=== PATIENT | female | born 1965 | race Caucasian/White ===

== ENCOUNTER 2016-07-07 16:39 | Inpatient (IN) | payer MEDICARE ==
[~2016-07-07] VITALS: Ht 167.6 cm; Wt 53.2 kg
[~2016-07-07 16:39] MED LIST: ALBU8.5H2 INHALATION; FLUO10CA20 PO; IBUP800T28 PO; KLO1T PO; LEVO125T6 PO; NITR0.4T SL; OLAN5TAB PO
[2016-07-07 16:59] VITALS: BP 125/85; PULSE 77; RESP 14; O2SAT 97
--- NOTE | 2016-07-07 17:21 | ED.REPORT ---
HPI-Psychiatric Illness Date of Service Jul 07, 2016 ED Provider: Ernie Anderson MD Pt is a 51 y.o. female with an extensive mental health hx including PTSD, bipolar disorder, ADHD, depression, anxiety, and hx of ETOH abuse who presents to the ED via EMS s/p a suicide attempt. Pt used an Exacto knife to create lacerations to her arms bilaterally and her neck. Pt refuses to speak upon examination so hx is limited. Nursing Notes Stated Complaint: SUICIDAL ATTEMPT Chief Complaint: Psychiatric Complaint Nursing Notes Reviewed: Yes Allergies: Coded Allergies: Sulfa (Sulfonamide Antibiotics) (Verified Allergy, Unknown, 06/05/15) aspirin (Verified Allergy, Unknown, 06/05/15) Scheduled Albuterol HFA (Proair HFA) 8.5 Gm Hfa.aer.ad 2 PUFFS INHALATION Q4H Clonazepam (Clonazepam) 1 Mg Tablet 1 MG PO BID Fluoxetine (Fluoxetine) 10 Mg Capsule 10 MG PO DAILY Levothyroxine (Levothyroxine) 125 Mcg Tablet 125 MCG PO DAILYAC Olanzapine (Olanzapine) 5 Mg Tablet 5 MG PO BID Scheduled PRN Ibuprofen (Ibuprofen) 800 Mg Tablet 800 MG PO TID PRN PRN For Pain Nitroglycerin SL (Nitrostat) 0.4 Mg Tab.subl 0.4 MG SL Q5MIN PRN PRN For Chest Pain General Time Seen by MD: 17:12 Chief Complaint Suicidal attempt Hx Obtained From: EMS Unable to Obtain Hx: Patient condition, Uncooperative Arrived By: Ambulance Onset Occurred: Just prior to arrival Caused by: Cut self Recent Healthcare: No recent doctor visit, No recent hospitalization Risk-Psychiatric Illness Suicide Risk Stratification Suicide Risk Factors - Adult: : Alcohol use RF Statements: Risk factors reviewed Past Medical History Past Medical History Notes: PCP: Dr. Colmenares Psychiatrist: Dr. Lucero Past Medical History PTSD Bipolar admitted 04/20/2014 to [facility] ([facility] Anxiety ADHD Depression "Major chronic dehydration" Unclear if Seizure hx Reports: COPD Reports: Thyroid disease Past Surgical History Partial hysterectomy Second surgery that resulted in complete hysterectomy Smoking History Current Every Day Smoker Social History Sober for 14 years until she recently started drinking again she claims 1 week ago Alcohol Use: In recovery Drug Use: THC Other Social History: Poor social support, Lives alone, Local resident Occupation lives with landlady, no work or school Ambulatory Status Independent Review of Systems Lacerations, arms bilaterally and neck Unable to Obtain ROS Patient condition, Uncooperative Psychiatric: Reports: Suicidal ideation Complete sys rev & neg: except as marked. Physical Exam Physical Exam Notes: Initial Vital Signs Vital Signs (First) Date Time Temp Pulse Resp B/P Pulse Ox O2 Delivery O2 Flow Rate FiO2 07/07/16 16:59 36.4 77 14 125/85 97 Room Air Initial VS: Reviewed Head / Eyes: Atraumatic, Normocephalic Respiratory: Breath sounds normal, Clear to auscultation, No respiratory distress Cardiovascular: Regular rate & rhythm, Heart sounds normal, Intact distal pulses Skin: Warm, Dry, No cyanosis General/Constitutional: Awake Pt refuses to speak upon examination Neurologic: No motor deficits Abnormal Thinking / Perception: Positive: Suicidal, with plan Trauma - General: Positive: Abrasion Multiple superficial self-inflicted abrasians to left and right aspect of neck. Upper Extremity / MS: Neurologic intact, Vascular intact, No ligamentous injury Trauma / Burn / Environmental: Positive: Laceration Multiple superficial abrasions to right forearm measuring 4-6cm. From anticubital fossa to wrist 13 lacerations, none actively bleeding, dried blood present. At least 10 lacerations to left forearm, 3 extend to subcutaneous tissue and are open and actively bleeding. 6-8cm lacerations over left anticubital fossa lateral aspect of one is slightly open. Interpretation & Diagnostics Lab Results Interpretation Result Diagram: 07/07/16 2350 07/07/16 2350 Test 07/07/16 17:47 07/07/16 23:50 Hold Urine Received (Received) Urine Opiates Screen Negative Urine Methadone Screen Negative Urine Barbiturates Screen Negative Urine Amphetamines Screen Negative Urine Benzodiazepines Screen Negative Urine Cocaine Metabolite Screen Negative Urine Cannabinoids Screen Positive White Blood Count 7.0th/mm3 (3.8-10.1) Red Blood Count 3.68mil/mm3 (3.90-5.20) Hemoglobin 12.1g/dL (12.0-15.6) Hematocrit 35.7% (35.0-46.0) Mean Corpuscular Volume 97.0fL (81-100) Mean Corpuscular Hemoglobin 32.9pg (27.0-35.0) Mean Corpuscular Hemoglobin Concent 33.9% (32.0-37.0) Red Cell Distribution Width 15.1% (12.3-15.4) Platelet Count 192bil/L (150-400) Neutrophils (%) (Auto) 47.6% (40-74) Lymphocytes (%) (Auto) 38.0% (14-46) Monocytes (%) (Auto) 9.3% (4-12) Eosinophils (%) (Auto) 4.4% (0-5) Basophils (%) (Auto) 0.4% (0-3) Sodium Level 137mEq/L (134-144) Potassium Level 4.3mEq/L (3.5-5.2) Chloride Level 100mEq/L (97-108) Carbon Dioxide Level 28mmol/L (18-29) Blood Urea Nitrogen 24mg/dL (6-24) Creatinine 0.72mg/dL (0.57-1.00) Estimat Glomerular Filtration Rate 122mL/min (>59) Glucose Level 97mg/dL (60-99) Calcium Level 8.9mg/dL (8.5-10.1) Total Bilirubin 0.2mg/dL (0.0-1.2) Aspartate Amino Transf (AST/SGOT) 96U/L (0-50) Alanine Aminotransferase (ALT/SGPT) 72U/L (0-32) Alkaline Phosphatase 106U/L (25-150) Total Protein 5.6g/dL (6.4-8.4) Albumin 3.6g/dL (3.4-5.0) Thyroid Stimulating Hormone (TSH) 0.353uIU/mL (0.450-4.500) Hold Otto Top Tube Received (Received) Alcohol, Quantitative < 10mg/dL (0-10) General Lab Results Interp 2: Alcohol level elevated (.020) Procedures Procedure Notes: several shallow lacerations repaired on left forearm by PADMA Al Consent not obtained, emergent repair. Hand hygiene observed, sterile technique. Left forearm cleansed with Shur-Clens and normal saline. Approximately 6 mL's of 1% lidocaine with epi distributed among several lacerations using a 27-gauge needle. All lacerations simple 1 layer closures, repaired using 5-0 Ethilon sutures as follows: 4 cm laceration; 9 running sutures 2 cm laceration; 4 running sutures 2 cm laceration; 4 running sutures 2 cm laceration; 4 running sutures 4 cm laceration; 10 running sutures 4 cm laceration; 11 running sutures 1 cm laceration; one mattress suture Antibiotic ointment applied and gauze dressing applied Re-Eval/Medical Decision Med Decision/Clinical Course In summary, the patient is a 51-year-old female who presents to the emergency department after multiple self-inflicted lacerations to the forearms and presumed suicide attempt. History is extremely limited as the patient refuses to speak with us in the emergency room. Breathalyzer 0.020, urine drug screen unremarkable. The patient's multiple lacerations were copiously irrigated and tetanus status was updated. Lacerations were repaired as documented above. The patient was seen and evaluated by our social media analyst who was unable to provide much additional information from her. Given the severity of her lacerations we are concerned that this may have been a genuine suicide attempt. DM was called to evaluate the patient. She was signed out to the oncoming physician in stable condition. Patient was seen by the CDP. The MHP's evaluation found her to be voluntary and recommendations were for voluntary hospitalization. Laboratory work was drawn. She was considered medically clear based upon laboratory work and she was admitted to the psychiatric floor. Source of Hx: Old records Counseled Regarding: Diagnosis Discharge & Departure Shift Change Sign-Out Patient Care Transferred: Yes (Dr. Smart) Discussed Complaint(s): Yes Laboratory Evaluation: Lab evaluation discussed Impression: Primary Impression: Substance abuse Additional Impressions: Depression Depression Type: unspecified Qualified Code: F32.9 - Major depressive disorder, single episode, unspecified Suicide attempt Multiple lacerations Discharge Condition All VS Reviewed: Yes Condition: Stable Referrals: Gigi Colmenares MD (PCP) Care Transferred to: Dr. Smart Care Transferred at: 00:00 Marlo Attestation Portions of this note were transcribed by Sena Montgomery. I, Dr. Anderson personally performed the history, physical exam and medical decision-making; I reviewed and confirmed the accuracy of the information in the transcribed note. Signed by: Marlo Barboza, 07/07/2016 and 2224. copies to: Gigi Colmenares MD, Beck O MD Jul 07, 2016 17:21 SENA MONTGOMERY Jul 07, 2016 17:35 Brian Conway PA-C Jul 07, 2016 21:07 Alberto Barnard DO Jul 08, 2016 02:26
[2016-07-07] MEDS ORDERED: Lidocaine 1% 50 mL Inj NERVEBLOCK ONE (17:25)
[2016-07-07] MEDS ORDERED: TdaP Vaccine 0.5 mL Inj IM ONE (17:25)
[2016-07-07 19:17] VITALS: BP 102/80; PULSE 83; RESP 26; O2SAT 96
[2016-07-08 00:05] LABS: BASOPHILS % (AUTO) 0.4 % (0-3); EOSINOPHILS % (AUTO) 4.4 % (0-5); MONOCYTES % (AUTO) 9.3 % (4-12); Mean Corpuscular Hemoglobin 32.9 pg (27.0-35.0); NEUTROPHILS % (AUTO) 47.6 % (40-74); Platelet Count 192 bil/L (150-400)
[2016-07-08 00:36] VITALS: BP 124/79; PULSE 78; RESP 20; O2SAT 95
--- NOTE | 2016-07-08 02:37 | NUR ---
Admission Pt is a 51 yr old pt, police brought to ER here on voluntary basis. Pt came in withself inflicted lacerations on both arms in which required suturing. Pt arms are wrapped by ER in Guaze bandage, she has signed no harm Suicide contract. Arrived to [facility] at 0130, in w/c by BUSINESS TRAVEL CONSULTANT and security. Pt has a hx of IA with no detailed record, but does have nitro orders. Also, pt has a hx of panic attacks, PTSD, Alcohol dependence. Pt has a Group health medicare insurance she was positive for BZO and THC. Pt was compliant with signing admit packet/paperwork. She appeared anxious and tearful "This is my last chance, from here on I am done!" MD Reina contacted and ordered standard orders and ok add nitroglycerin for CP. Belonging checked by Rocío. Pt had meds with her and will be sent to [facility]. Addendum: 07/08/16 at 0358 by BRITTNEY PINTO RN [facility] given by werner Colón. pt was cooperative with most questions, but simply didn't care to be asked about goals or other assessment questions at this time. "Ask me tomorrow, I just want this over with" "I just want to be done"
[2016-07-08] MEDS ORDERED: Alum-Mag Hydrox-Simeth 30 mL Suspension PO PRN (03:25)
[2016-07-08] MEDS ORDERED: Benzocaine-Menthol Lozenge 2/Pkg PO PRN (03:25)
[2016-07-08] MEDS ORDERED: Magnesium Hydroxide 10 mL Oral Concentration PO PRN (03:25)
[2016-07-08] MEDS ORDERED: NICO4GUM7 BC (03:45)
[2016-07-08] MEDS ORDERED: FLUO20CA25 PO (03:45)
[2016-07-08] MEDS: LORazepam 1 mg Tablet PO PRN ×2 (03:52→09:04)
[2016-07-08] MEDS: hydrOXYzine Pamoate 25 mg Capsule PO PRN ×3 (05:43→16:13)
--- NOTE | 2016-07-08 06:39 | NUR ---
Pt arrived at 135. Presented with dressings on arms. Signed papers with much explanation. For the picture she wanted to make sure her cut up arms were in it, staff redirected stating it was just the face for the staff to identify person. Immediately began demanding items from belongings as well as more blankets, pillows and medications. Pt did not sleep. Pt observed every 15 minutes as ordered.
[2016-07-08 13:41] VITALS: BP 131/88; PULSE 70; RESP 16
[2016-07-08] MEDS: PARoxetine 20 mg Tablet PO SCH ×2 (13:50→21:42)
--- NOTE | 2016-07-08 14:19 | HP ---
[address] [address] HISTORY AND PHYSICAL PATIENT: KAYLA ZEE : 1965 MR#: [id number] ADMIT: 07/08/2016 JOB ID: [id number] CHIEF COMPLAINT: "I just want it to be done, I want it to be over with, I'm so tired." This per patient report. HISTORY OF PRESENT ILLNESS: As stated above, the patient met with myself and pillowcase cutter, Jodi, and discussed her recent events over the past several weeks. She indicated that she has spoken with the social security specialist, and ED physician down in the ED about the possibility of accessing assisted suicide. I did confirm with the patient that based on her primary representation of mental health and that this has never been allocated as a justifiable cause of assisted suicide. The patient initially was quite dramatic, irritable, dysphoric with escalating of voice throughout the course of interview. She was redirected by myself and became sincerely apologetic and tearful. She indicated that for much of her life she has been medicinalized with various medications and that recently she had been doubling up on her doses of Paxil, Zyprexa and Klonopin with no affective response. She indicated that she has not taken her medication for the past 48 hours. She reports that she was initially to be seen by outpatient support of counseling. She reports that she did see Dr. Alvarez for follow up care but indicates that she is unwilling to return back to the individual. She indicates that she does have a follow up appointment with at [facility] nurse practitioner in approximately two weeks. Throughout her course of the interview, the patient was quite dramatic but redirectable and had significant evidence of initial presentation of random flight of ideas, loose and disconnected thinking, but when asked to contain herself, she followed accordingly. 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 She does openly identify significant intensification of depression over the past several weeks. She also noted that she has had several panic attacks, even this morning. I have discussed re-initiation of medications with election to not initiate benzodiazepines based on suspicion of addiction and abuse. She openly identified that she is aware that this is a concern and appeared to be sincere with the acceptance that she would not be prescribed formal agents of addictive nature. PAST MEDICAL HISTORY: Substantial for allergies to SULFA, ASPIRIN. Other medical history was reviewed through the ED report. I agree with findings. Her current medications include none. She denies any recent medical change of status. PAST PSYCHIATRIC HISTORY: Substantial for previous interventions with Dr. Alvarez, also a physician at [facility] in the past. This is her third hospitalization. She has been tried on multiple antidepressants, mood stabilizers, antipsychotics throughout the years. SOCIAL HISTORY: Currently she lives independently. She reportedly did identify that she had been involved in a long-term relationship for greater than 10 years and this individual kicked her out prior to her most recent hospitalization. She admitted to daily usage of marijuana up to three times per day indicating that she does have a medicinal card that has been completed by Dr. Colmenares, her primary care physician. Abuse history was not reviewed. FAMILY HISTORY: Deferred. DEVELOPMENTAL HISTORY: Deferred. MENTAL STATUS EXAMINATION: General appearance: The patient is quite dramatic throughout but redirectable. Her speech is pressured. Her mood is loose. It is euphoric, dysphoric. Her affect is irritable, labile. Her thought process shows evidence of racing thoughts, flight of ideas, loose and disconnected thinking but she is redirectable and able to contain upon request. Her thought content, she readily admitted to recurrent themes of suicide. She has multiple lacerations requiring sutures with bandages in place. She denies any homicidal ideation. She denied any active hallucinations, delusions. She was alert, oriented to time, place, situation. Her attention and concentration intact. Memory intact in the short term, [facility], recent. Insight and judgment are poor. PHYSICAL EXAMINATION: All vital signs of current. Temperature is 36.4, pulse 78, respirations 20, BP 124/79. IMPRESSIONS: AXIS I 1. Mood disorder, not otherwise specified. 2. Major depressive disorder, recurrent type, nonpsychotic. 3. Panic disorder without agoraphobia. 4. Cannabis use disorder, chronic and severe. AXIS II 1. Histrionic personality disorder. 2. Borderline personality disorder. AXIS III Recent lacerations, self-inflicted, requiring sutures. AXIS IV Stressors are noted for chronic disturbance of coping, recurrent substance abuse. AXIS V Global assessment of functioning of 30. PLANS: 1. Recommendations for re-initiation of medications including Zyprexa dispensed at 20 mg b.i.d. 2. Recommendations for re-initiation of Paxil dispensed at 20 mg b.i.d. 3. Continuation of Vistaril 50 mg q.4 hours p.r.n. 4. Recommendations for consolidation of aftercare appointments to follow. 5. Continuation of albuterol inhaler as noted prior.
--- NOTE | 2016-07-08 17:54 | NUR ---
Side Panel Hanger./ c.m. S.:"[place]hal and Caleb stopped working in a week after discharge and I don't know why... I'm tired, scared and fed up... I want to live and I mean it!" O.: met with pt. and doctor together in pt.'s room. She was in bed resting but she got up readily and agreed to talk. She is vol. This is her 3rd psych. hospitalization. She complained about panic attacks that she "had for 39 years". She was asking for meds that would help with panic attacks. "I need a special medications because I can't do coping skills, I can't think - my mind is broken." She denied SI/HI at this time. She denied AH/VH or paranoid/delusional thoughts. She was up and down and running around in her room when she showed her panic attacks. She was asking for meds that would take care of her panic attacks because she didn't believe that coping skills would help her. She was in and out of her room during the day making a lot of sound and complained about panic attacks. A.: pt. is cooperative, very dramatic and loud, seeking attention and meds. P.: monitor behavior, encourage pt. to practice deep breathing, physical exercises and anxiety coping skills; follow care plan.
--- NOTE | 2016-07-08 18:30 | NUR ---
Nursing Dayshift: S: "I feel much better. The Vistaril worked well." O: Patient states having anxiety "pretty high earlier but now none" around 1700. Depression "not clinical depression, but maybe situational depression. I'm okay right now." Very dramatic earlier in shift. Much improved after meeting with the doctor and CM. Eating well at meals. Pleasant on approach afternoon and evening. A: Improved mood throughout the day. P: CPOC. Monitor mood and behavior.
--- NOTE | 2016-07-08 18:47 | NUR ---
Observations 0700 to 1900 Pt struggled with behavioral control throughout the day. Pt is labile, distracted, disorganized. Pt was frequently sobbing and hyperventilating in the morning but improved significantly after meeting with doctor. Pt spent most of day in her room, frequently rushing out into elder to make demands or express anxiety. Pt could not attend any community activities on the unit but gave a goal was 'to survive'. Pt ate 75-100% of meals and was observed every 15 minutes as ordered.
--- NOTE | 2016-07-09 05:39 | NUR ---
noc shift 11-7 pt slept well through the night. Vistaril was given and was effective. pt slept 8.25 hrs and had an uneventful night.
--- NOTE | 2016-07-09 05:57 | NUR ---
Pt out on unit watching TV and interacting. Smiling and interacting positively. Asleep at 2044. Pt observed every 15 minutes as ordered.
[2016-07-09] MEDS: PARoxetine 20 mg Tablet PO SCH ×2 (07:53→20:56)
[2016-07-09 08:40] VITALS: BP 145/85; PULSE 86; RESP 16
[2016-07-09] MEDS: hydrOXYzine Pamoate 25 mg Capsule PO PRN ×2 (10:32→21:51)
--- NOTE | 2016-07-09 11:02 | NUR ---
Nursing Note [id number] Behavior, Mood S/O: Pt refused breakfast. B/P this morning was 145/85. Pt reports she hasn't been getting her Synthroid. Dr. Reina ordered it to start tomorrow morning. Pt attended community meeting this morning. Her goal was to stay in the present. Pt found shaky. She reported anxiety at a "10" on a scale of 1-10/10 the worst. Vistaril 50 mg given at 1030. She reports depression. When asked to rate it, she said, "I'm sick & tired of being sick." Pt denies suicidal ideation. She took of dressing on left arm stating she wanted to take a shower after the movie. Stitches intact. No s/sx of infection. Scabs covering wounds. A: Pt has difficulty controlling her mood. P: Provide supportive environment. Monitor medications & effects.
--- NOTE | 2016-07-09 14:12 | PROG NOTE ---
[address] [address] PROGRESS NOTE PATIENT: KAYLA ZEE : 1965 MR#: [id number] ADMIT: 07/08/2016 JOB ID: [id number] DATE: 07/09/2016 CHIEF COMPLAINT: "I am doing better, I will go to some of the group activities later today. I really want make my appointment with my nurse practitioner." HISTORY OF PRESENT ILLNESS: As stated above, the patient openly identified a significant improvement with her status. She was much more containable throughout the course of conversation. She indicated that she has been abiding by current medication interventions and stated that she is wondering about her doses of Synthroid. OBJECTIVE: On mental status exam, she was bright, cooperative, interactive. She maintained good eye contact throughout. She denied any evidence of current suicidal, homicidal ideation. She denies any active hallucinations, delusions. She was alert, oriented to time, place, situation. Attention and concentration intact. Memory intact in the short term, adjunct faculty for medical terminology, recent. Insight and judgment are fair. PHYSICAL EXAMINATION: Vital signs are current: Temperature is 36.3, pulse 70, respirations 16, BP 131/88. MEDICATION REVIEW: Includes Zyprexa 20 mg b.i.d., Paxil 20 mg b.i.d. ASSESSMENT: [place] I: 1. Mood disorder, not otherwise specified. 2. Major depressive disorder, recurrent type, nonpsychotic. 3. Panic disorder, without agoraphobia. 4. Cannabis use disorder, chronic and severe. [place] II: Histrionic personality disorder. [place] III: Recent lacerations, self-inflicted, requiring sutures. [place] IV: Stressors are noted for chronic disturbance of coping, recurrent substance use. [place] V: Global Assessment of Functioning of current 35. PLAN: 1. Recommendations for reinitiation of Synthroid 125 mcg daily. 2. Recommendations for probable discharge tomorrow for continuation of outpatient interventions noted.
--- NOTE | 2016-07-09 16:59 | NUR ---
Inspector Outside Production./ c.m. S.:"I'm trying to recover right now. I feel better today... I never been myself, I always use something - alcohol, mj or drugs (medications). I don't know how to cope. I want to feel better now!" O.: met with pt. and doctor together in pt.'s room and later met with her alone in a private room. She slept well last night. She denied SI/HI. She felt better today. She denied AH/VH or paranoid/delusional thoughts. She talked about her alcohol addiction for 39 years and meds addiction. She felt nervous about her treatment and her discharge plan. She was in and out of her room spending some time in the Dining room watching TV and movies. A.: pt. is cooperative, looks calmer, anxious about discharge. P.: monitor behavior, work on discharge plan and Safety plan; follow care plan.
--- NOTE | 2016-07-09 17:36 | NUR ---
Observations [id number] Pt was asleep upon start of shift. She attended meals, eating a total of 75%. Pt was friendly with staff and peers. She appeared restless much of the day, walking between her room and TV. She did watch a few movies, and spent time on the phone talking with friends. When asked how she was doing in the morning, she responded to this typewriter repairer, "not good." She appeared to be doing better later in the day. Pt took a shower in the evening. Pt did not participate in groups but did attend Community Meeting. Pt was observed every 15 minutes of shift as directed.
--- NOTE | 2016-07-10 06:15 | NUR ---
Nursing note NOC Patient slept 5+ hours with less out of room time at night. PRN Ambien at 2056 and Vistaril at 2150. Labs: RBC low 3.86; AST elevated at 96 ALT elevated at 72. TSH low, .353
--- NOTE | 2016-07-10 06:41 | NUR ---
Observations from [id number] Pts mood and affect were upbeat and positive this shift. Pt attended wrap up group and said she accomplished her goal of staying focused and centered. She was very proud of the fact that she started reading a book and said this was the first time shes red for pleasure in almost 15 years. Pt rated mood 10/10 and spent the evening watching tv. Pt had some trouble falling asleep but appeared asleep 0045 and remained asleep throughout the night. Pt has been monitored every 15 minutes as directed.
[2016-07-10] MEDS: PARoxetine 20 mg Tablet PO SCH (07:36)
[2016-07-10 08:30] VITALS: BP 115/70; PULSE 95; RESP 16
--- NOTE | 2016-07-10 11:01 | PCM.DIMED ---
Discharge Instructions Date of Service Jul 10, 2016 Dates of Hospitalization Jul 08, 2016 at 01:22 Discharge Diagnosis Discharge Diagnosis Mood DOI NOS Cannabis Use DO severe chronic PTSD chronic Diet No restrictions Activity No restrictions Say Reina DO Jul 10, 2016 11:00
[2016-07-10] MEDS ORDERED: HYDR50CA3 PO (14:09)
[2016-07-10] MEDS ORDERED: OLAN20TA16 PO (14:09)
[2016-07-10] MEDS ORDERED: PARO20TA5 PO (14:09)
--- NOTE | 2016-07-10 15:39 | NUR ---
Program Management Analyst./ c.m. S.:"Guess what? My landlord lady is coming to pick me up! I didn't even ask her! She offered it by herself. I'm so happy!" O.: met with pt. and doctor together in pt.'s room. She was very excited about going home with her landlord. She denied SI/HI. She felt "much better today". She has follow up appt. with her PCP, Dr. Darrian Reza MD on Jul 18 @ 15:00 at [facility] in [place] ([phone]) to take off her stitches. She has intake appt. for mental health on Jul 20 @ 13:45 with [facility] @ [facility] ([phone]). She was in and out of her room talking to selected peers and watching TV. She completed Safety plan. A.: pt. is cooperative, pleasant, has brighter affect and a positive attitude. P.: monitor behavior, follow care plan.
--- NOTE | 2016-07-10 19:31 | NUR ---
Nursing: Day shift. Also Discharge note. Pt was out on open unit most of shift. No complaints. Therapeutic Sales Specialist assessed areas with scratched bilaterally on neck, reddened healing superficial cuts on right forearm, and multiple superficial cuts as well as 5 sutured lacerations on left forearm. These were redressed. No redness or swelling on any areas assessed. Pt met with doctor and dependency case manager. She signed all discharge papers, gathered belongings, and left unit accompanied by yusuf at 1550. All outcomes met.
--- NOTE | 2016-07-11 01:13 | DIS ---
[address] [address] DISCHARGE SUMMARY PATIENT: KAYLA ZEE : 1965 MR#: [id number] ADMIT: 07/08/2016 JOB ID: [id number] DIS: 07/10/2016 ADMITTING DIAGNOSES: AXIS I: 1. Mood disorder, not otherwise specified. 2. Major depressive disorder, recurrent type, nonpsychotic. 3. Panic disorder without agoraphobia. 4. Cannabis use disorder, chronic and severe. AXIS II: 1. Histrionic personality disorder. 2. Borderline personality disorder. AXIS III: Recent laceration self-inflicted, requiring sutures. AXIS IV: Stressors were noted for chronic disturbance of coping, recurrent substance abuse. AXIS V: Global Assessment of Functioning current 30. DISCHARGE DIAGNOSES: AXIS I: 1. Mood disorder, not otherwise specified. 2. Major depressive disorder, recurrent type, nonpsychotic. 3. Panic disorder without agoraphobia. 4. Cannabis use disorder, chronic and severe. AXIS II: 1. Histrionic personality disorder. 2. Borderline personality disorder. AXIS III: Recent laceration self-inflicted, requiring sutures. AXIS IV: Stressors were noted for chronic disturbance of coping, recurrent substance abuse. AXIS V: Global Assessment of Functioning current 50. REASON FOR ADMISSION: The patient is a well-known client with repeated hospitalizations over the past two months. She reportedly had significant recent hospitalization and discharge with noted characteristic features of major depressive disorder, borderline personality disorder and cannabis abuse. The patient reportedly identified that she had not followed up with outpatient recommendations of individual therapy and medication management, but had actually come back to previous care provider, Dr. Alvarez. She indicated that she was agreeable to increase her doses of Paxil and Zyprexa, but continued to be quite histrionic and dramatic throughout her course of hospitalization. Throughout the course of hospitalization, the patient was encouraged to continue with her outpatient care provider team, including appointments scheduled with [facility] [place] for initiation of medication management, also consideration of supportive therapies. She was openly confronted on her usage of marijuana that it was only conflicting with her current medication administration, but she continued to adhere to the benefit from medication. She was informed that she would not be receiving benzodiazepines from myself or any other members of this hospital based on her significant history of contributory abuse. CONDITION AT TIME OF DISCHARGE: The patient's mood and affect were stable. She denied any evidence of current suicidal, homicidal ideation. She openly admitted to significant regret and remorse in reference to self-harm behaviors including multiple lacerations to her bilateral forearms, neck and chest. She denied any evidence of active hallucinations, delusions. She was alert, oriented to time, place, situation. Attention and concentration are fleeting. Insight and judgment are poor. DISCHARGE PLANS: Include: 1. Follow up appointment with Dr. Colmenares on July 18 at 3 o'clock. 2. Follow up with nurse practitioner at the [facility] on July 19 at 2 o'clock. 3. Continuation of medications including: a. Zyprexa 20 mg b.i.d., one month supply, no refills. Reason for usage of mood stabilizer. b. Continuation of Paxil 20 mg, one tablet b.i.d., one month supply, no refills. Reason for usage antidepressant. c. Continuation of Vistaril 50 mg, one tablet b.i.d. p.r.n. Reason for usage antianxiety. 4. The patient was highly encouraged to discontinue usage of marijuana. 5. Follow up with Dr. Colmenares for appropriate wound care and management of her previous self-inflicted lacerations.
== END 2016-07-10 15:50 | disposition home or self-care (01) | DRG 885 ==
LOC: SED 16:39 → MHC 07-08 01:22
PROVIDERS: ADMIT Psychiatry & Neurology Psychiatry; ATTEND Psychiatry & Neurology Psychiatry
PROC: 0HQEXZZ Repair Left Lower Arm Skin, External Approach (ICD-10-PCS; principal; 2016-07-08)
DX: F33.2 Major depressive disorder, recurrent severe without psychotic features (principal); F41.0 Panic disorder [episodic paroxysmal anxiety]; F12.99 Cannabis use, unspecified with unspecified cannabis-induced disorder; F60.3 Borderline personality disorder; F60.4 Histrionic personality disorder; F17.210 Nicotine dependence, cigarettes, uncomplicated; S51.812A Laceration without foreign body of left forearm, initial encounter; E03.9 Hypothyroidism, unspecified; X78.1XXA Intentional self-harm by knife, initial encounter

== ENCOUNTER 2017-01-28 19:01 | Inpatient (IN) | payer MEDICARE ==
[~2017-01-28] VITALS: Ht 165.1 cm; Wt 68.2 kg
[~2017-01-28 19:01] MED LIST changes: -ALBU8.5H2 INHALATION; -FLUO10CA20 PO; +HYDR50CA3 PO; -IBUP800T28 PO; -KLO1T PO; -LEVO125T6 PO; -NITR0.4T SL; +OLAN20TA16 PO; -OLAN5TAB PO; +PARO20TA5 PO
[2017-01-28 19:04] VITALS: BP 111/80; PULSE 78; RESP 15; O2SAT 95
[2017-01-28] MEDS ORDERED: KLO1T PO (19:15)
--- NOTE | 2017-01-28 19:51 | ED.REPORT ---
HPI-General Illness Date of Service Jan 28, 2017 ED Provider: Salomon Dawn MD Pt is a 51 year old female with a history of panic attacks and PTSD who presents to the ED via EMS for ETOH complaining of suicidal ideation. She c/o associated panic attacks and anxiety. Pt states "nobody knows how to take care of me. I suffer from major panic attacks. They are at the point where each time I go under respiratory distress. This is daily. I rarely had nightmares until recently. There is nothing harming in my life. In other words, there is no clinical trigger, if you will, for these panic attacks. My first panic attack was when I was 12. Nothing in the medicinal world helps it and I'm gonna ." The pt further elaborates with "I started drinking because I don't want to live anymore. I cannot stand waking up anymore. I don't want to wake up anymore. I feel like putting a bullet in my head. I have only been drinking for 11 months and it's the only way I know how to settle down. I avoid caffeine and chocolate. I avoid everything that can be deemed as a stimulant. If you can't help me, send me to the mental unit." Nursing Notes Stated Complaint: ANXIETY,ETOH Chief Complaint: Psychiatric Complaint Nursing Notes Reviewed: Yes Allergies: Coded Allergies: Sulfa (Sulfonamide Antibiotics) (Verified Allergy, Unknown, 01/28/17) aspirin (Verified Allergy, Unknown, 01/28/17) Scheduled Clonazepam (Clonazepam) 1 Mg Tablet 1 MG PO TID General Time Seen by MD: 19:49 Chief Complaint Other (Suicidal Ideation) Hx Obtained From: Patient, EMS Arrived By: Ambulance Sudden in Onset?: No Onset Occurred: Onset unknown Symptom Duration: Since onset Severity: Current: No pain currently Severity: Maximum: No pain Recent Healthcare: Recent doctor visit Similar Sx Previous: Yes Past Medical History Past Medical History Notes: PCP: Dr. Colmenares Psychiatrist: Dr. Lucero Past Medical History PTSD Bipolar admitted 04/20/2014 to [facility] ([facility] ) Anxiety ADHD "Major chronic dehydration" Unclear if Seizure hx Reports: COPD Reports: Depression, Thyroid disease Past Surgical History Partial hysterectomy Second surgery that resulted in complete hysterectomy Smoking History Current Every Day Smoker Social History Sober for 13 years until she recently started drinking again in 02/14 she claims. Alcohol Use: >5 per day Drug Use: Denies drug use Other Social History: Poor social support, Lives alone, Local resident Occupation lives with landlady, no work or school Ambulatory Status Independent Review of Systems Full Review of Systems Respiratory: Denies: Non-productive cough, Shortness of breath Psychiatric: Reports: Anxiety (Panic attackes), Suicidal ideation Complete sys rev & neg: except as marked. Physical Exam Vital Signs Vital Signs Date Time Temp Pulse Resp B/P Pulse Ox O2 Delivery O2 Flow Rate FiO2 01/28/17 23:08 36.4 83 16 137/69 98 Room Air 01/28/17 19:04 36.7 78 15 111/80 95 Room Air Initial VS: Reviewed Head / Eyes: Atraumatic, Normocephalic Neck: Supple, Full range of motion Respiratory: Breath sounds normal, Clear to auscultation, No respiratory distress Extremities: Vascular intact, Neuro intact Skin: Warm, Dry, No cyanosis General/Constitutional: Awake, Alert Respiratory / Chest: Atraumatic, Breath sounds NL, Breath sounds = bilat Cardiovascular: Heart rate NL, Regular rhythm, Heart sounds NL, No gallop, No murmurs Psychiatric: No hallucinations Abnormal Mood/Affect: Positive: Pressured speech Abnormal Thinking / Perception: Positive: Suicidal, no plan Tangential. Poor judgement. Interpretation & Diagnostics Lab Results Interpretation Result Diagram: 01/28/17220201/28/172202 Test 01/28/17 22:03 White Blood Count 4.3th/mm3 (3.8-10.1) Red Blood Count 3.62mil/mm3 (3.90-5.20) Hemoglobin 12.0g/dL (12.0-15.6) Hematocrit 35.4% (35.0-46.0) Mean Corpuscular Volume 97.8fL (81-100) Mean Corpuscular Hemoglobin 33.1pg (27.0-35.0) Mean Corpuscular Hemoglobin Concent 33.9% (32.0-37.0) Red Cell Distribution Width 17.1% (12.3-15.4) Platelet Count 170bil/L (150-400) Neutrophils (%) (Auto) 36.6% (40-74) Lymphocytes (%) (Auto) 46.6% (14-46) Monocytes (%) (Auto) 10.8% (4-12) Eosinophils (%) (Auto) 4.9% (0-5) Basophils (%) (Auto) 0.9% (0-3) Sodium Level 141mEq/L (134-144) Potassium Level 3.7mEq/L (3.5-5.2) Chloride Level 100mEq/L (97-108) Carbon Dioxide Level 22mmol/L (18-29) Blood Urea Nitrogen 13mg/dL (6-24) Creatinine 0.84mg/dL (0.57-1.00) Estimat Glomerular Filtration Rate 102mL/min (>59) Glucose Level 77mg/dL (60-99) Calcium Level 9.3mg/dL (8.5-10.1) Magnesium Level 1.6mg/dL (1.6-2.6) Total Bilirubin 0.3mg/dL (0.0-1.2) Aspartate Amino Transf (AST/SGOT) 114U/L (0-50) Alanine Aminotransferase (ALT/SGPT) 106U/L (0-32) Alkaline Phosphatase 145U/L (25-150) Total Protein 6.3g/dL (6.4-8.4) Albumin 3.7g/dL (3.4-5.0) Lipase 29U/L (13-60) Thyroid Stimulating Hormone (TSH) 0.838uIU/mL (0.450-4.500) Hold Otto Top Tube Received (Received) Alcohols 108mg/dL (0-10) Re-Eval/Medical Decision Source of Hx: Old records Time of Eval: 23:36 Re-Evaluation/Progress Note: Pt rechecked. She is alert and cooperative. She reports that she is getting more anxious and manic. Pt had not given a urine specimen. The pt had no new complaints. All questions addressed. Counseled Regarding: Diagnosis, Lab results Discharge & Departure Shift Change Sign-Out Patient Care Transferred: Yes Discussed Complaint(s): Yes Laboratory Evaluation: Lab evaluation discussed Awaiting urine tox and social science professor evaluation in the morning. Chronically on clonazepam. Clonazewpam 1 mg and Zyprexa 10 mg given Primary Impression: Suicidal ideations Additional Impression: Alcohol abuse Discharge Condition All VS Reviewed: Yes Condition: Stable Referrals: Gigi Colmenares MD (PCP) Care Transferred to: Dr. Lee Care Transferred at: 03:00 Marlo Attestation Portions of this note were transcribed by Milla Marcano. I, Dr. Dawn personally performed the history, physical exam and medical decision-making; I reviewed and confirmed the accuracy of the information in the transcribed note. Signed by : Marlo Beckham, 01/28/17. copies to: Gigi Colmenares MD, Donald L MD Jan 28, 2017 19:51 Milla Salguero Jan 28, 2017 21:03
[2017-01-28 22:18] LABS: BASOPHILS % (AUTO) 0.9 % (0-3); EOSINOPHILS % (AUTO) 4.9 % (0-5); MONOCYTES % (AUTO) 10.8 % (4-12); Mean Corpuscular Hemoglobin 33.1 pg (27.0-35.0); Mean Corpuscular Volume 97.8 fL (81-100); NEUTROPHILS % (AUTO) 36.6 % (40-74); Platelet Count 170 bil/L (150-400)
[2017-01-28 23:08] VITALS: BP 137/69; PULSE 83; RESP 16; O2SAT 98
[2017-01-28 23:13] LABS: Magnesium 1.6 mg/dL (1.6-2.6)
[2017-01-28] MEDS ORDERED: OLANZapine Zydis ODT 5 mg Tablet PO ONE (23:40)
[2017-01-29 04:10] VITALS: BP 138/97; PULSE 78; RESP 16; O2SAT 96
[2017-01-29] MEDS ORDERED: OLANZapine Zydis ODT 5 mg Tablet PO ONE ×2 (09:00→15:45)
[2017-01-29] MEDS ORDERED: Benzocaine-Menthol Lozenge 2/Pkg MT PRN (15:45)
[2017-01-29] MEDS ORDERED: Alum-Mag Hydrox-Simeth 30 mL Suspension PO PRN ×2 (15:45→18:50)
[2017-01-29] MEDS ORDERED: Magnesium Hydroxide 10 mL Oral Concentration PO PRN ×2 (15:45→18:50)
[2017-01-29 16:48] VITALS: BP 153/100; PULSE 72; RESP 14; O2SAT 96
--- NOTE | 2017-01-29 18:24 | NUR ---
NURS NOTE ADMIT PT arrived on unit at 1645 in a wheelchair from [facility] ED. Pt reports a history of PTSD, anxiety, MDD, and alcohol use disorder, with multiple hospitalizations and long history of psychiatric treatment. Pt presented to ED escorted by police. Pt was brought to ED by police. Pt reports that she called police because she was having thoughts of hurting herself, stating "I didn't want to wake up anymore." Pt reports drinking a half gallon of alcohol daily since the end of January 2017, drinking from "when [she] wakes up until she passes out." Pt reports that she has been taking clonazepam 1 mg QID. Pt has brought recently filled (01/25/17) prescription for clonazepam from [facility]. Pt endorses suicidal ideation without a plan. [place] MICHELE. JACQUELINE Tyson. Med rec completed by ED.
[2017-01-29] MEDS ORDERED: LEVO100T6 PO (19:14)
[2017-01-29] MEDS: hydrOXYzine Pamoate 25 mg Capsule PO PRN (21:03)
[2017-01-30] MEDS: hydrOXYzine Pamoate 25 mg Capsule PO PRN ×3 (02:53→15:48)
--- NOTE | 2017-01-30 03:30 | NUR ---
Nursing, NOC 7pm-7am Patient visible on unit at beginning of shift, sitting in day room watching TV. Minimal interaction w/ select peers and staff. PRN Vistaril given x 2 during the shift for c/o anxiety and insomnia, fairly effective. Slightly anxious affect, no self-harm behaviors noted, no suicidal ideations reported. Continue Q15 min safety checks thru the NOC.
[2017-01-30] MEDS ORDERED: PARoxetine 20 mg Tablet PO SCH (08:30)
--- NOTE | 2017-01-30 08:34 | NUR ---
NURS NOTE NICOTINE PATCH Pt removed nicotine over night on advice from RN due to nightmares. Readminstered new patch at 0835.
--- NOTE | 2017-01-30 13:46 | NUR ---
NURS NOTE DAY Mood: "I'm calm." Thirty seconds after this statement was made, pt was crying. Endorses anxiety, 4/10; depression, 6/10. Affect: Labile. Thought Process/Content: "No one here will teach me how to use the phone ." (Two staff had already assisted her in making phone calls). Linear, linked. Behavior: Pt up in common areas much of shift. Pt is occasionally irritable and demanding of staff. . PRNs/NURS: Taking all scheduled medications.
[2017-01-30] MEDS: LORazepam 1 mg Tablet PO SCH ×2 (14:24→17:53)
--- NOTE | 2017-01-30 14:28 | HP ---
[address] [address] HISTORY AND PHYSICAL PATIENT: KAYLA ZEE : 1965 MR#: [id number] ADMIT: 01/29/2017 JOB ID: [id number] IDENTIFICATION OF PATIENT: The patient is a 51-year-old female known to myself with prior admission in July of 2016. At the time her discharge diagnoses included mood disorder, NOS, cannabis use disorder, panic disorder without agoraphobia, major depressive disorder, recurrent type, nonpsychotic. There were also noted features of histrionic and borderline personality. Since that time, the patient indicated that she has dropped out of her previous care with [facility] in [place]. She reportedly has moved to [place], [place] and is currently in transition with psychiatrist. She indicated that her previous care provider, Dr. Alvarez, has retired and that she has been receiving medications including Klonopin through [facility] and has been informed that they will be discontinuing her medication with no further refills. She reports that she has had increasing difficulties with depression, panic attacks, and states that she is feeling overwhelmed. CHIEF COMPLAINT: "There are mornings that I just cannot fathom living another day." This per patient report. HISTORY OF PRESENT ILLNESS: As stated above, the patient is a known patient of my own with previous admission and discharge in July of 2016. During that time, the patient has had significant displays of traumatic nature. She was quite histrionic and demanding medications of benzodiazepines. She reported that she was struggling with significant feelings of depression due to the fact that her care provider at [facility] has indicated that they will no longer fill her doses of Klonopin. During the course of hospitalization of prior, I had elected to discontinue her doses of Klonopin due to significant suspicion of misuse and abuse and at that time the patient was discharged on medications only Zyprexa, Paxil and Vistaril. She indicated that she returned to Dr. Colmenares who agreed to reinitiate the medications. Nonetheless there is growing concern of the patient's difficulties with addiction. She further identified that she has been drinking a half a gallon of alcohol per day in addition to her usage of Klonopin. She met at length with myself and Johanny, the showcase trimmer and openly identified that she no longer wants to drink, that in fact the smell of it repulses her. She indicated that she is unwilling to pursue drug and alcohol treatment stating that she needs to get her mental health issues under control. She made various comments throughout that she has suffered from panic attacks all of her life and that it seems like they have just gotten worse. I have discussed with the patient that at this time I am unwilling to deviate from previous course of treatment. She reports that she is aware that she does have an appointment scheduled with a new provider at [facility] and is scheduled with an appointment on the 8th of this month. She reports that she is hopeful that this provider will continue with her medication regimens. She states that she has since discontinued doses of Zyprexa, Paxil and only remains on Klonopin. Further information was provided by nursing staff with the indication that the patient has been maintained on doses of Synthroid 100 mcg daily. Based on the current presentation, I have elected to discuss with the patient that due to her history of alcohol usage that she will need some interventions of medications including benzodiazepine treatment for withdrawal and I will begin a process of Ativan usage which will be tapered at length. I do feel that there is a strong component of addiction and malingering nonetheless and the patient will be informed that if she is unwilling to cooperate with the taper that she will be unfortunately discharged at this time. PAST MEDICAL HISTORY: Substantial for allergies to SULFA and ASPIRIN. Her current medications include: 1. Klonopin 1 mg t.i.d. 2. Synthroid 100 mcg daily. She denies any recent surgeries, fractures, head trauma. PHYSICAL EXAM: Was completed through the emergency department. I agree with findings. PAST PSYCHIATRIC HISTORY: Substantial for previous engagement with [facility], [facility] for medication management, [facility] most recently per patient report. She reportedly has had one prior admission in July of 2016 as noted above. SOCIAL HISTORY: Currently patient is living in a shared housing complex with two additional roommates. She denies any current usage of substances. She admits to drinking 1/2 gallon per day over the past several months. Trauma history was not reviewed. FAMILY HISTORY: Deferred. DEVELOPMENT HISTORY: Deferred. MENTAL STATUS EXAMINATION: General appearance: The patient is questionable in her reliability, validity. She is quite dramatic throughout. Her speech is of normal tone, frequency and volume. Her mood is anxious. Her affect is inappropriate. Her thought process shows no evidence of racing thoughts, flight of ideas, loose or disconnected thinking. Thought content: She readily identifies of feelings of hopelessness. She admits to daily thoughts of suicide but denies any specific intent or plan. She denied any active hallucinations or delusions. She was alert, oriented to time and place. Her insight and judgment are poor. IMPRESSIONS: AXIS I 1. Alcohol use disorder, severe, in a controlled environment. 2. Benzodiazepine use disorder, severe, in a controlled environment. 3. Mood disorder, not otherwise specified. 4. Major depressive disorder, recurrent type, nonpsychotic. AXIS II 1. Borderline personality disorder. 2. Histrionic personality disorder. AXIS III 1. Alcohol withdrawal. 2. History of hypothyroidism. AXIS IV Stressors are noted for disturbance of primary support system, chronic alcohol use, limited support system. AXIS V Global assessment of functioning of current 30. PLANS: 1. Recommendations for taper of Ativan at 1 mg t.i.d. for three days, then 1 mg b.i.d. for three days, then 1 mg q.h.s. for three days, then discontinue. 2. Discontinuation of Klonopin. 3. Continuation of Zyprexa 20 mg daily. 4. Continuation of Paxil 20 mg daily. 5. Continuation of thiamine 100 mg daily. 6. Initiation of Synthroid 100 mcg daily. 7. The patient will be encouraged to consider enrollment in chemical dependency. However, the patient has declined such at this time. [facility]
--- NOTE | 2017-01-30 15:54 | PCM.DIMED ---
Discharge Instructions Date of Service Jan 30, 2017 Dates of Hospitalization Jan 29, 2017 at 16:06 Discharge Diagnosis Discharge Diagnosis Alcohol Use DO Benzodiazepine Use DO Panic DO with agoraphobia Diet Discharge Diet: No restrictions Activity Discharge Activity: No restrictions Colby Lomeli DO Jan 30, 2017 15:54
--- NOTE | 2017-01-30 16:01 | NUR ---
Motorman/Woman The patient has accepted to be transported to [facility] this evening for Inpatient Detox. Medicaid transport has been arranged and discharge time will be 5:00pm.
--- NOTE | 2017-01-30 17:18 | DIS ---
[address] [address] DISCHARGE SUMMARY PATIENT: KAYLA ZEE : 1965 MR#: [id number] ADMIT: 01/29/2017 JOB ID: [id number] DIS: ADMITTING DIAGNOSES: AXIS I: 1. Alcohol use disorder. 2. Benzodiazepine use disorder, severe, in a controlled environment. 3. Panic disorder with agoraphobia. 4. Rule out malingering. AXIS II: 1. Borderline personality disorder. 2. Histrionic personality disorder. AXIS III: History of hypothyroidism with replacement. AXIS IV: Stressors are noted including chronic alcohol use, misuse of prescription agents. AXIS V: Global Assessment of Functioning, current 30. REASON FOR ADMISSION: The patient is a 51-year-old female known to myself with prior admission in July 2016. At that time, the patient was discharged with diagnoses including panic disorder with agoraphobia, major depressive disorder, recurrent, nonpsychotic, alcohol use disorder and benzodiazepine use disorder. Since that time, the patient reports that she has moved from [place] to [place], and has discontinued previous the outpatient counseling services with [facility]. In addition, the patient is in transition from previous prescriber, Dr. Alvarez, to a new prescriber scheduled on February 06 with [facility]. The patient reports that she was informed by her physician commissary assistant at [facility] that he would no longer fill her Klonopin and she indicated that she became rapidly suicidal. She did admit to me following intake this morning that she had withheld information that she had previously been evaluated for enrollment at [facility] in [place] within the past two weeks. Confirmation was noted through both [facility] and her insurance company via teleconference and election to a transfer back to [facility] for initiation of services followed. The patient indicated that she was declined initial intake to [facility] due to elevated liver enzymes and reportedly spent an evening at [facility] in [place], with recommendations to return to the facility. Since that time, the patient identified that she continues to consume alcohol 1/2 gallon per day. She admits to going through one month supply of Klonopin within two weeks. She indicates that she continues to struggle with evidence of panic attacks and difficulties with feelings of depression. She reports that she has since discontinued her previous doses of Paxil, Zyprexa which were instituted back in July for severe manifestations of panic. It is noted that during the course of treatment in July, the patient's Klonopin of prior was discontinued with tapering doses due to identified misuse of her prescriptions. The patient reports that she later returned to her primary care physician, Dr. Colmenares, who elected to reinitiate doses of Klonopin. She indicates that she unfortunately has no longer contact with Dr. Colmenares for unknown reasons and was receiving prescriptions from a PA at [facility] in [place]. CONDITION AT TIME OF DISCHARGE: The patient was cooperative, but abrupt. She indicated that she was willing to return back to [facility] to undergo dual diagnosis treatment and indicated that she realizes that she needs to make some changes. She identified however that she struggles with acceptance that she is addicted and stated that she has kicked the habit many times before. She reported that her last drink was within the past 48 hours and that she feels no craving sensation at this time. She is on Ativan taper as scheduled at 1 mg t.i.d. for the next three days and taper with discontinuation over the next six days. Her speech was of normal tone, frequency, and volume. Her mood was neutral. Affect was irritable. Her thought process showed no evidence of racing thoughts, flight of ideas, loose or disconnected thinking. Her thought content: She denied any evidence of current suicidal ideation, intent, or plan. She was agreeable to a transfer with transport agencies. She denied any homicidal ideation. No evidence of active hallucinations, delusions. She was alert, oriented to time and place. Her attention and concentration intact. Insight and judgment were deemed poor. PLANS: 1. Recommendations to contact ambulance transport. Numbers were given and staff are calling to facilitate. 2. Recommendations for continuation of medication including Zyprexa 20 mg q.h.s., Paxil 20 mg daily, Ativan taper at 1 mg t.i.d. for the next three days then 1 mg b.i.d. for three days, then 1 mg q.h.s. for three days, then discontinue. 3. Recommendations to follow up with chemical dependency treatment program per [facility] and the care provider team as noted.
[2017-01-30] MEDS ORDERED: LORazepam 1 mg Tablet PO ONE (18:10)
--- NOTE | 2017-01-30 18:37 | NUR ---
NURS DISCHARGE NOTE Patient cooperative with discharge/transfer process to [facility] for inpatient detox and recovery services. Acknowledges understanding of discharge instructions and has a copy with them upon leaving unit at 1655. Belongings accounted for and with patient. Patient denies harmful thoughts and hallucinations at this time. Encouraged pt to complete goals and seek out staff for assistance if needed. Addendum: 01/30/17 at 1840 by KELSEY VELA RN CORRECTION: Time of discharge was 1755 NOT 1655.
[2017-02-02] MEDS ORDERED: BECL8.7A6 INHALATION (10:20)
[2017-02-02] MEDS ORDERED: FAMC250T4 PO (10:20)
== END 2017-01-30 17:55 | disposition other institution (70) | DRG 897 ==
LOC: SED 19:01 → MHC 01-29 16:06
PROVIDERS: ADMIT Psychiatry & Neurology Psychiatry; ATTEND Psychiatry & Neurology Psychiatry
DX: F10.239 Alcohol dependence with withdrawal, unspecified (principal); F33.9 Major depressive disorder, recurrent, unspecified; R45.851 Suicidal ideations; F40.01 Agoraphobia with panic disorder; Y90.5 Blood alcohol level of 100-119 mg/100 ml; F60.3 Borderline personality disorder; F60.4 Histrionic personality disorder; F39 Unspecified mood [affective] disorder; F11.90 Opioid use, unspecified, uncomplicated

== ENCOUNTER 2017-02-11 14:35 | Emergency (ER) | payer MEDICARE ==
[~2017-02-11 14:35] MED LIST changes: +BECL8.7A6 INHALATION; +FAMC250T4 PO; -HYDR50CA3 PO; +LEVO100T6 PO; -OLAN20TA16 PO; -PARO20TA5 PO
[2017-02-11 14:44] VITALS: BP 143/90; PULSE 82; RESP 12; O2SAT 98
--- NOTE | 2017-02-11 15:07 | ED.REPORT ---
HPI-General Illness Date of Service Feb 11, 2017 ED Provider: Iliana Srivastava MD The pt is a 51 y/o female with a hx of PTSD, bipolar disorder, anxiety, ADHD and depression who presents to the ED via EMS requesting detox today. In the ED , the pt is crying. She states "I have severe panic, depression and alcoholism. I need to get into detox right away". She was seen at the ED two weeks ago for the same complaint. She states she went to [facility] after that visit and was discharged last week without any medications because the physician was busy. She has been drinking for the last three days. She denies vomiting, self-harm and suicidal ideation. Nursing Notes Stated Complaint: ETOH Chief Complaint: Substance Abuse Nursing Notes Reviewed: Yes Allergies: Coded Allergies: Sulfa (Sulfonamide Antibiotics) (Verified Allergy, Unknown, 01/28/17) aspirin (Verified Allergy, Unknown, 01/28/17) Scheduled Beclomethasone Dipropionate (Qvar) 8.7 Gm Aer.w.adap 2 PUFF INHALATION BID Famciclovir (Famciclovir) 250 Mg Tablet 250 MG PO BID Levothyroxine (Levothyroxine) 100 Mcg Tablet 100 MCG PO DAILY Olanzapine (Zyprexa) 20 Mg Tablet 20 MG PO DAILY Paroxetine (Paroxetine) 20 Mg Tablet 20 MG PO HS General Time Seen by MD: 15:04 Chief Complaint Other (requesting detox) Hx Obtained From: Patient Arrived By: Ambulance Sudden in Onset?: No Onset Occurred: 5 - 8 hours ago Symptom Duration: Since onset Severity: Current: No pain currently Severity: Maximum: No pain Recent Healthcare: Recent doctor visit Similar Sx Previous: Yes Past Medical History Past Medical History Notes: PCP: Dr. Colmenares Psychiatrist: Dr. Lucero Past Medical History PTSD Bipolar admitted 04/20/2014 to [facility] ([facility] ) Anxiety ADHD "Major chronic dehydration" Unclear if Seizure hx Reports: COPD Reports: Depression, Thyroid disease Past Surgical History Partial hysterectomy Second surgery that resulted in complete hysterectomy Smoking History Current Every Day Smoker Social History Lives in [place] Alcohol Use: >5 per day Drug Use: Denies drug use Other Social History: Poor social support, Lives alone, Local resident Occupation lives with landlady, no work or school Ambulatory Status Independent Review of Systems Reports: intoxication Denies: self-harm Full Review of Systems GI: Denies: Vomiting Psychiatric: Reports: Depression, Denies: Suicidal ideation Complete sys rev & neg: except as marked. Physical Exam Vital Signs Vital Signs Date Time Temp Pulse Resp B/P Pulse Ox O2 Delivery O2 Flow Rate FiO2 02/11/17 20:14 87 18 135/88 100 Room Air 02/11/17 16:51 92 18 132/88 100 Room Air 02/11/17 14:44 36.5 82 12 143/90 98 Room Air Initial VS: Reviewed Head / Eyes: Atraumatic, Normocephalic, PERRL ENT: Mucous membranes moist, Conjunctiva normal, No scleral icterus Neck: Supple, Non-tender, Full range of motion Respiratory: Breath sounds normal, Clear to auscultation, No respiratory distress Cardiovascular: Regular rate & rhythm, Heart sounds normal, Intact distal pulses Abdomen / GI: Soft, Non-tender, No guarding, No rebound, No distention Extremities: Vascular intact, Neuro intact, No swelling, No tenderness Neurologic: Alert, Oriented, Nonfocal General/Constitutional: Awake, Alert Dramatic affect of behavior. She is able to be redirected. Skin: Atraumatic, Color NL, No rash, Warm, Dry, Intact Well profused skin with no signs of self-harm. Interpretation & Diagnostics Lab Results Interpretation Test 02/11/17 16:20 Hold Urine Received (Received) Lab Results Interpretation: Alcohol = 0.178 Urine = positive for Benzodiaepines and Tricyclic. Re-Eval/Medical Decision Med Decision/Clinical Course per care center discharge 01/30/17: Recommendations for continuation of medication including Zyprexa 20 mg q.h.s., Paxil 20 mg daily Source of Hx: Old records Time of Eval: 15:21 Re-Evaluation/Progress Note: Talked to the drug abuse social worker. She will contact [facility]. Time of Eval: 16:07 Re-Evaluation/Progress Note: Talked to the drug abuse social worker. She reports [facility]. The pt is on the phone with [facility]. Time of Eval: 16:47 Re-Evaluation/Progress Note: [facility] informed the drug abuse social worker they can not accept the pt as she told the [facility] intake staff member that she has been bedridden, hasn't been able to walk and clean herself for over a year and a half. Time of Eval: 17:01 Re-Evaluation/Progress Note: Talked to [facility] staff member while in the pt's room. The pt agrees she is ambulatory and is able to care for herself. [facility] will accept the pt. Discussed diagnosis and plan to discharge. Pt understands and agrees with the plan. F/U instruction and RTER warning given. All questions addressed. Counseled Regarding: Diagnosis, Need for follow-up, When/why to return to ED Discharge & Departure Primary Impression: Alcohol intoxication Complication of substance-induced condition: uncomplicated Qualified Code: F10.120 - Alcohol abuse with intoxication, uncomplicated Additional Impressions: Anxiety Depression Depression Type: unspecified Qualified Code: F32.9 - Major depressive disorder, single episode, unspecified Disposition: Home (to [facility]) Discharge Condition All VS Reviewed: Yes Condition: Stable [facility] You need to stop drinking You need to take your zyprexa 20mg and paxil/paroxitine 20mg daily. Next dose of these will need to be tomorrow. You have copies of prescriptions and they have been faxed to [facility] as well. You can use the ativan to taper off your alcohol. Your next dose of Ativan can be at MIDNIGHT tonight Take one tablet by mouth every 6 hours for 24 hours, then take 1/2 tablet by mouth every 6 hours for 48 hours, then take 1/2 tablet by mouth every 12 hours for 24 hours. I am NOT able to give you the doses of clonazepam you are requesting - you will need to follow up with your psychiatric provider for this. It is NOT medically indicated nor appropriate for you at this time. Referrals: Gigi Colmenares MD (PCP) Scribe Attestation Portions of this note were transcribed by Gaby Ahn. I,, personally performed the history, physical exam and medical decision-making;I reviewed and confirmed the accuracy of the information in the transcribed note. Signed by Marlo Arboleda. 02/11/17 copies to: Gigi Colmenares MD, Shawna L MD Feb 11, 2017 15:07 Gaby Ahn Feb 11, 2017 15:10
[2017-02-11 16:51] VITALS: BP 132/88; PULSE 92; RESP 18; O2SAT 100
[2017-02-11] MEDS ORDERED: OLANZapine Zydis ODT 5 mg Tablet PO ONE (17:25)
[2017-02-11] MEDS ORDERED: LORazepam 2 mg Tablet PO ONE (18:40)
[2017-02-11] MEDS ORDERED: _LORazepam 2 MG Tablet PO SCH (18:40)
[2017-02-11] MEDS ORDERED: PARO20TA5 PO (18:48)
[2017-02-11] MEDS ORDERED: OLAN20TA3 PO (18:48)
[2017-02-11 20:14] VITALS: BP 135/88; PULSE 87; RESP 18; O2SAT 100
== END 2017-02-11 20:15 | disposition home or self-care (01) ==
LOC: SED 14:35
DX: F10.120 Alcohol abuse with intoxication, uncomplicated (principal); F41.9 Anxiety disorder, unspecified; F32.9 Major depressive disorder, single episode, unspecified; F43.10 Post-traumatic stress disorder, unspecified; F90.9 Attention-deficit hyperactivity disorder, unspecified type; J44.9 Chronic obstructive pulmonary disease, unspecified; E07.9 Disorder of thyroid, unspecified; F17.200 Nicotine dependence, unspecified, uncomplicated; Z88.2 Allergy status to sulfonamides; Z88.6 Allergy status to analgesic agent

== ENCOUNTER → 2017-03-07 | Day surgery (SDC) | payer MEDICARE ==
[~2017-03-07] VITALS: Ht 165.1 cm; Wt 57.6 kg
[~2017-03-07] MED LIST changes: +Lactated Ringer's 1,000 ML IV ONE; +OLAN20TA3 PO; +PARO20TA5 PO; +PARO20TA57 PO; +Propofol 10,000 mCg/mL 20 mL Inj ONE
--- NOTE | 2017-03-07 15:01 | PCM.HPANE ---
Patient Data Date of Service: Mar 07, 2017 Surgeon Admitting Provider: Attending Provider:Salomon Paniagua MD Primary Care Physician:Gigi Colmenares MD Other Provider:Ashley Wong Anesthesia Reason for Visit Nausea Ht/WT & BMI Body Mass Index Allergies Coded Allergies: Sulfa (Sulfonamide Antibiotics) (Verified Allergy, Unknown, 01/28/17) aspirin (Verified Allergy, Unknown, 01/28/17) Past Anesthesia History Anesthesia History: Denies:: Abnormal Airway, Anesthesia Reactions, Difficult Intubation, Fam Anesthesia Reaction, Fam Malignant Hypertherm, Malignant Hyperthermia Diabetes History Hx Diabetes?: No MRSA MRSA: No Medications Hypertension Medication: Yes Home Meds Incl Beta Jose: No Reported Medications Paroxetine (Paxil)20 Mg [id number] Mg PO HS Ref 0 03/07/17 Levothyroxine 100 Mcg [id number] Mcg PO DAILY For Thyroid Replacement Ref 0 01/29/17 Discontinued Reported Medications Beclomethasone Dipropionate (Qvar)8.7 Gm Aer.w.adap2 Puff INHALATION BID #8.7 GM 02/02/17 Famciclovir 250 Mg [id number] Mg PO BID Ref 0 02/02/17 Discontinued Scripts Paroxetine 20 Mg [id number] Mg PO HS #30 TABLET Ref 0 Prov:Iliana Srivastava MD 02/11/17 Olanzapine (Zyprexa)20 Mg Lpsmpf00 Mg PO DAILY #30 TABLET Ref 0 Prov:Iliana Srivastava MD 02/11/17 History History of ENT Problems?: No HEENT History: Denies:: Abnormal Airway Cataracts Difficult Intubation Dysphagia Glaucoma Hearing Problem Sinus Problem TMJ Denture Type: None Teeth Condition: Within Normal Limits Hx of Heart Problems?: Yes Cardiovascular History: Positive for:: Coronary Artery Disease Hypertension (LABILE) Denies:: Congestive Heart Failure Other History/Comments Reports hx of "small heart attacks" from which she completely recovered. Hx of Respiratory Problem?: No Respiratory History: Denies:: Asthma COPD Chest Surgery Cough Dyspnea Emphysema Hemoptysis Oxygen Administration Pneumonia Pulmonary Embolism Tuberculosis Use of C-PAP Machine Use of Inhalers / NEBS Other History/Comment Denies asthma, COPD, but long time smoker quit 3 days ago. Hx Neurologic Problems?: No Neurological History: Denies:: Alzheimer's Disease CVA Dementia Dizziness Headaches Multiple Sclerosis Parkinson's Disease Peripheral Neuropathy Seizures TIA Hx of GI Problems?: No Gastrointestinal History: Positive for:: Liver Disease Other History/Comment Chronic Nausea Hx of Problems?: No Female Hx: Denies:: Currently Hx Musculoskeletal Problems?: No Psycho Social History: Positive for:: Anxiety Bipolar Disorder Hx Depression Suicide Attempt ("I wasn't that serious about it.") Hx Surgeries?: Yes (hysterectomy) Other History: Positive for:: Hospitalization Hx Alcohol Use: NoHx Substance Use: Yes Smoking Status: Current Every Day Smoker Have You Smoked inLast 12 mo: Yes Stop/Bang Treated for Sleep Apnea?: No Do You Have a CPAP Machine?: No S-Snoring: Do You Snore Loudly: No T-Tired: feel tired, fatigued: No O-Obsered: Observed not breath: No P-Blood Pressure: treated: Yes B- Body Mass Index > 35 kg/m2: No A- Age over 50: Yes N- Neck Large Circumference: No G- Gender Male: No JEROD Risk Assessment: Low Risk, <3 Yes Risk Assessment Category Category 1A: Patient has history of documented sleep apnea, and HAS NOT received any narcotic, sedative or anesthesia administration during this stay. Category 1B: Patient has history of documented sleep apnea, and HAS received any narcotic , sedative or anesthesia administration during this stay Category 2: Patient has SUSPECTED Obstructive Sleep Apnea, and HAS received any narcotic , sedative or anesthesia administration during this stay. Category 3: Patient has SUSPECTED Obstructive Sleep Apnea and HAS NOT received narcotic, sedative or anesthesia administration during this stay. Category 4: Outpatient in Procedural Areas with known sleep apnea or who screen positive for High Risk via the STOP/BANG questionnaire. Exam Exam General Appearance: Alert, Oriented X3, Cooperative, Mild Distress HEENT/AIRWAY: MP 2 Lungs: Clear to Auscultation Heart: Exam Unremarkable, Regular Rate/Rhythm, Normal S1, Normal S2, No Murmurs /Rubs/Gallops Plan Impression Patient chart reviewed, patient interviewed and anesthestic plan with risks, benefits, and alternatives discussed, and informed consent obtained. NPO per Anesth. Guidelines: No ASA Physical Status: ASA3 Severe Disease Anesthetic Plan: MAC Bene/Risks/Altern/Consents: Yes HP Complete Prior to Induction: Yes Other NPO criteria met at 1630 Krish Prieto MD Mar 07, 2017 15:01
[2017-03-07 15:08] VITALS: BP 126/82; PULSE 74; RESP 16; O2SAT 98
[2017-03-07 17:15] VITALS: BP 120/79; PULSE 90; O2SAT 96
[2017-03-07 17:25] VITALS: BP 120/76; PULSE 85; O2SAT 98
--- NOTE | 2017-03-07 17:27 | PCM.ANEP1 ---
Post Anesthesia PACU Phase 1 Assessment Vital Signs Vital Signs Date Time Temp Pulse Resp B/P Pulse Ox O2 Delivery O2 Flow Rate FiO2 03/07/17 15:08 36.2 74 16 126/82 98 Room Air Anesthetic Administered: MAC Level of Alertness: Awake, talking GIBBS's with Equal Strength: Yes Pain: No Nausea or Vomiting: No CV Function & Hydration Stable: Yes Airway Device: Oxygen Delivery: Room Air Lungs: Clear to Auscultation, Normal Air Movement PACU Phase 2 Assessment Complications: No Follow up Care: No Patient Instructions Provided: N/A Comments At baseline Krish Prieto MD Mar 07, 2017 17:26
--- NOTE | 2017-03-07 17:51 | ENDO ---
[address] [address] ENDOSCOPY PROCEDURE PATIENT: KAYLA ZEE : 1965 MR#: [id number] ADMIT: 03/07/2017 JOB ID: [id number] PRIMARY PROVIDER: Gigi Colmenares MD PROCEDURE: Esophagogastroduodenoscopy with biopsies. INDICATION: A 51-year-old female with intermittent nausea, vomiting, and a history of weight loss, and anorexia. She was on NSAIDs. Endoscopic examination is pursued. EQUIPMENT: GIF H 180. SEDATION: Monitored anesthesia as provided by Dr. Krish Prieto. COMPLICATIONS: None identified. PROCEDURE INFORMATION: After the risks and benefits were explained, written and verbal informed consent was obtained. The patient was brought into the endoscopy suite and placed into the left lateral decubitus position. Sedation was achieved using the above stated medications with the addition of oxygen via nasal cannula. The scope was introduced into the mouth through the bite block and advanced to the second portion of the duodenum. The scope was slowly withdrawn to carefully examine the mucosa for any defects or lesions. Retroflexed views were accomplished in the stomach. The stomach was decompressed and the scope removed from the patient, who tolerated the procedure well. FINDINGS: 1. Duodenum: There were some scattered erosions in the duodenal bulb consistent with her NSAID history. Random biopsies were taken from D2 for exclusion of sprue. 2. Stomach: No ulcers, no mucosal mass lesions, no outlet obstruction. No varices. Moderate diffuse gastropathy was seen throughout and random gastric biopsies were taken for exclusion of Helicobacter or other pathology. 3. Esophagus: The squamocolumnar junction correlated with the top of the gastric folds. The GEJ was at about 40 cm from the incisors. No acute erosive changes. No strictures. No mass lesions. Very subtle sliding hiatal hernia noted. Remainder of the esophagus was unremarkable. ENDOSCOPIC DIAGNOSES: 1. Small hiatal hernia. 2. Moderate diffuse gastropathy. 3. Erosive duodenopathy. RECOMMENDATIONS: 1. Await histopathology. 2. If Helicobacter is found, it will need to be eradicated with standard triple therapy. 3. Avoid NSAIDs. 4. Continue bowel regimen discussed in GI Clinic. 5. Continue complete alcohol abstinence. 6. Repeat LFTs in the next week or so to determine the next steps.
--- NOTE | 2017-03-12 15:04 | PATH ---
SURGICAL PATHOLOGY Attending Physician:Lakeisha Álvarez CASE STATUS: Signed Out PATIENT NAME: KAYLA ZEE PID: [id number] : 1965 DATE COLLECTED:03/07/2017 00:00 SPECIMEN: 1: Duodenum, Biopsy 2: Gastric, Biopsy CLINICAL HISTORY: He 1). DUODENAL BIOPSY, RULE OUT H PYLORI 2). GASTRIC BIOPSY, RULE OUT H PYLORI FINAL DIAGNOSIS: 1.DUODENUM, BIOPSY: - SMALL BOWEL MUCOSA WITH NO DIAGNOSTIC ABNORMALITY. - No evidence of active inflammation features of sprue, dysplasia, and malignancy. 2.GASTRIC BIOPSY: - GASTRIC BODY-TYPE MUCOSA WITH NO DIAGNOSTIC ABNORMALITY. - Negative for Helicobacter pylori microorganisms by immunohistochemistry. - Negative for intestinal metaplasia. - Negative for dysplasia and malignancy. ICD10 K29.70 GROSS DESCRIPTION: The specimen is received in two formalin filled containers labeled with the patient's name. 1). The specimen is labeled "duodenal" and consists of a 0.2 x 0 2 x 0.2 CM portion of tissue which is entirely submitted in cassette 1A. 2). The specimen is labeled "gastric" and consists of a 0.3 x 0.2 x 0.2 CM portion of tissue which is entirely submitted in cassette 2A. 03/08/2017DC MICRO DESCRIPTION: 2. An immunohistochemical stain was performed to evaluate for Helicobacter pylori microorganisms. The control stains show appropriate reactivity. This test was developed and its performance characteristics determined by [facility]. It has not been cleared or approved by the U. S. Food and Drug Administration. The FDA has determined that such clearance or approval is not necessary. This test is used for clinical purposes. It should not be regarded as investigational or for research. ICD-9 CODES: CPT CODES: 1: 84710 2: 82455, 84385 Electronically Signed Out Pastor Osman MD [facility] [address], [place] [address] Technical component performed at [facility], [address], [place], [address]
== END | disposition home or self-care (01) ==
LOC: END 02-06 00:20
PROVIDERS: ATTEND Internal Medicine Gastroenterology
DX: K29.70 Gastritis, unspecified, without bleeding (principal); K31.9 Disease of stomach and duodenum, unspecified; K44.9 Diaphragmatic hernia without obstruction or gangrene; R11.0 Nausea; R63.4 Abnormal weight loss; R79.89 Other specified abnormal findings of blood chemistry; D64.9 Anemia, unspecified; I10 Essential (primary) hypertension; F31.9 Bipolar disorder, unspecified; G89.4 Chronic pain syndrome; E03.9 Hypothyroidism, unspecified; F17.210 Nicotine dependence, cigarettes, uncomplicated; F12.90 Cannabis use, unspecified, uncomplicated; J45.909 Unspecified asthma, uncomplicated; M51.36 Other intervertebral disc degeneration, lumbar region; Z68.20 Body mass index [BMI] 20.0-20.9, adult
CPT/HCPCS: 43239; J2704; J7120